=== PATIENT | male | born 2000 | race African-American/Black ===

== ENCOUNTER 2020-09-21 15:05 | Emergency (ER) | payer SELFPAY ==
[~2020-09-21] VITALS: Ht 172.7 cm; Wt 88.5 kg
[2020-09-21 15:09] VITALS: Ht 172.7 cm; Wt 88.5 kg
[2020-09-21 16:24] VITALS: BP 115/71
== END 2020-09-21 16:24 | disposition home or self-care (01) ==
LOC: ED 15:05
DX: R50.9 Fever, unspecified (principal); R51.9 Headache, unspecified; R05 Cough; R06.02 Shortness of breath; Z20.828 Contact with and (suspected) exposure to other viral communicable diseases
CPT/HCPCS: U0003